=== PATIENT | male | born 1995 | race Caucasian/White ===

== ENCOUNTER → 2023-07-03 15:08 | Outpatient (REF) | payer OTHER, SELFPAY | LOC: HWRAD 15:08 | PROVIDERS: ATTENDING PHYSICIAN Otolaryngology; FAMILY PHYSICIAN Family Medicine | DX: R22.1 Localized swelling, mass and lump, neck (principal) | CPT/HCPCS: 70491; Q9967 ==

== ENCOUNTER → 2024-02-06 14:27 | Outpatient (REF) | payer OTHER, SELFPAY | LOC: HWRAD 14:27 | PROVIDERS: ATTENDING PHYSICIAN Family Medicine | DX: R59.1 Generalized enlarged lymph nodes (principal); R10.11 Right upper quadrant pain; M79.621 Pain in right upper arm | CPT/HCPCS: 76700 ==

== ENCOUNTER → 2024-02-19 14:34 | Outpatient (REF) | payer OTHER, SELFPAY | LOC: HWRAD 14:34 | PROVIDERS: ATTENDING PHYSICIAN Family Medicine | DX: M79.629 Pain in unspecified upper arm (principal); R07.81 Pleurodynia | CPT/HCPCS: 71046; 71110 ==